=== PATIENT | male | born 1955 | race Caucasian/White ===

== ENCOUNTER 2016-12-10 10:53 | Emergency (ER) | payer BC ==
--- NOTE | ~2016-12-10 | CR63 ---
[facility] A Service of [facility] & [facility] RADIOLOGY TEXT RESULTS PATIENT: ISIDRA LEA LOCATION: SED : 53 UNIT #: [id number] AGE: [address]: Lyric Lockwood MD SEX: M ORDER DR: [id number] [place] [id number] MR#: [id number] Acc #: [id number] NAME: ISIDRA LEA : 1955 SEX: M STUDY DATE/TIME: 12/10/2016 11:07 UNIT: SED ROOM: STUDY DESCRIPTION: CR Chest 2 View Attending Physician: Lyric Lockwood M.D. Ordering Physician: Lyric Lockwood M.D. Primary Care Physician: Orquidea Bourgeois M.D. MEDICAL IMAGING REPORT This report is preliminary unless electronic signature is present. EXAM PA and lateral chest HISTORY Cough for 4 weeks. COMPARISON 02/28/2013 FINDINGS Lungs are well expanded. No evidence for air space consolidation. Heart size normal. Atherosclerotic calcification of the aorta. Visualized osseous structures are unremarkable. IMPRESSION No active disease. Dictated by... Jeremie Ruano M.D. THIS IS AN ELECTRONICALLY VERIFIED REPORT Jeremie Ruano M.D. at 12/11/2016 12:35 PM Jenni TD: 12/10/2016 12:07 JOB #: [id number] MEDICAL IMAGING REPORT Page 1 of 1
--- NOTE | ~2016-12-10 | EKG ---
PATIENT: ISIDRA LEA UNIT #: [id number] Ventricular Rate: 140 BPM Atrial Rate: 150 BPM QRS Duration: 90 ms Q-T Interval: 324 ms QTC Calculation(Bezet): 494 ms Calculated R [place]: -2 degrees Calculated T [place]: -130 degrees Diagnosis Line: Atrial fibrillation with rapid ventricular Diagnosis Line: response with premature ventricular or aberrantly Diagnosis Line: conducted complexes Diagnosis Line: Nonspecific ST and T wave abnormality , probably Diagnosis Line: digitalis effect Diagnosis Line: Abnormal ECG Diagnosis Line: When compared with ECG of 24-FEB-2013 13:52, Diagnosis Line: Atrial fibrillation has replaced Sinus rhythm Diagnosis Line: Vent. rate has increased BY 69 BPM Diagnosis Line: Non-specific change in ST segment in Inferior Diagnosis Line: leads Diagnosis Line: Nonspecific T wave abnormality, worse in Inferior Diagnosis Line: leads Diagnosis Line: Confirmed by HIRAM MENDOZA MD ([id number]) on Diagnosis Line: 12/12/2016 3:23:29 PM INTERPRETING MD: REJI SHETH
[~2016-12-10 10:53] MED LIST: ALEVE220 M1 PO; AMLODIPINE BESY10 MG PO; ATENOLOL PO; BENAZEPRIL PO; BYSTOLIC10 MG PO; CERTAGEN PO; CINNAMON; CLEOCIN PO; FISH OIL 1,0001 CAP PO; GLUCOVANCE 5/501 TA1 PO; GLYBURIDE-METFO1 TA4 PO; JANUVIA PO; LANTUS100 U/ML; LANTUS100 U/ML INJ; LASIX PO; LOPRESSOR PO; MICARDIS HCT PO; NORVASC PO; NOVOLOG100 U/ML SUBQ; OMEPRAZOLE20 M2 PO; PERCOCET7.5 PO; VASOTEC PO; VICOPROFEN 200-1 TAB PO; ZANTAC PO; ZETIA PO
[2016-12-10 11:29] LABS: BASOPHIL# 0.1 X10e3 (0-0.3); BASOPHIL% 0.9 % (0-2.5); EOSINOPHIL# 0.2 X10e3 (0-0.7); EOSINOPHIL% 1.9 % (0.0-7.0); HEMATOCRIT 50.4 % (38.0-50.0); HEMOGLOBIN 17.2 gm/dL (13.0-16.0); LYMPHOCYTE# 1.6 X10e3 (1.0-3.5); LYMPHOCYTE% 17.1 % (17.0-45.0); MEAN CELL VOLUME 81.2 FL (83-96); MEAN CORPUSCULAR HEMOGLOBIN 27.8 PG (28-34); MEAN CORPUSCULAR HGB CONC 34.2 g/dL (30-36); MEAN PLATELET VOLUME 7.6 FL (6.5-11.5); MONOCYTE# 0.9 X10e3 (0-1.0); MONOCYTE% 9.7 % (3.0-12.0); NEUTROPHIL# 6.7 X10e3 (1.5-7.1); NEUTROPHIL% 70.4 % (40-75); PLATELET COUNT 285 X10e3 (140-420); RED CELL DISTRIBUTION WIDTH 13.7 % (11.0-15.5); WHITE BLOOD COUNT 9.5 X10e3 (4.0-10.5)
[2016-12-10 11:34] LABS: DIFF IND NO
[2016-12-10 11:35] LABS: POC - CKMB 1.4 ng/mL (0.0-7.9); POC - TROPONIN <0.05 ng/mL (<=0.05)
[2016-12-10 11:45] LABS: ALBUMIN SERUM 3.9 g/dL (3.5-5.0); BILIRUBIN, DIRECT 0.1 mg/dL (0.0-0.2); BILIRUBIN,INDIRECT 0.7 mg/dL (0.0-0.9); BILIRUBIN,TOTAL 0.8 mg/dL (0.2-2.0); BUN/CREATININE RATIO 31.42; CREATININE SERUM 0.7 mg/dL (0.6-1.4); GLOM FILT RATE Estimated 101.2 mL/min (>60); POTASSIUM 3.9 mmol/L (3.5-5.1); PROTEIN TOTAL SERUM 6.9 g/dL (6.0-8.3)
== END 2016-12-10 14:12 ==
LOC: SED 10:53
PROVIDERS: Student in an Organized Health Care Education/Training Program
DX: R05 Cough (principal); R06.00 Dyspnea, unspecified; I48.91 Unspecified atrial fibrillation; I10 Essential (primary) hypertension; Z87.891 Personal history of nicotine dependence; Z88.0 Allergy status to penicillin
CPT/HCPCS: 36415; 71020; 80048; 80076; 82553; 83880; 84484; 85025; 93005; 99291